=== PATIENT | male | born 1970 | race Caucasian/White ===

== ENCOUNTER 2016-05-08 20:03 | Emergency (ER) | payer MEDICAID ==
[~2016-05-08] VITALS: Ht 180.3 cm; Wt 99.8 kg
[2016-05-08 20:12] VITALS: BP 149/98
--- NOTE | 2016-05-09 00:01 | NUR ---
PT TAKEN TO BED 5
--- NOTE | 2016-05-09 00:03 | NUR ---
Filomena ma in [facility] - 05/09/16 at [address] Hunter evaluating patient at bedside.
--- NOTE | 2016-05-09 00:05 | NUR ---
46 Y/O M W/C/O ABD PAIN, N/V X TODAY. DENIES ANY FEVER. NO S/S OF DISTRESS NOTED AT THE MOMENT. ER AWARED.
--- NOTE | 2016-05-09 00:09 | NUR ---
Dr. Hunter evaluating patient at bedside.
[2016-05-09] MEDS ORDERED: NACL 0.9% 1,000 ML IV SCH (00:12)
[2016-05-09] MEDS ORDERED: ONDANSETRON 4 MG/2 ML VIAL IVP ONE (00:15)
[2016-05-09] MEDS ORDERED: FAMOTIDINE 20 MG/2 ML VIAL IVP ONE (00:15)
[2016-05-09 02:18] VITALS: BP 125/78
--- NOTE | 2016-05-09 02:18 | NUR ---
PT ELOPED WITHOUT BEING DISCHARGE BY DR. YEE. ER NOTIFIED. IV DISCONTINUED BEFORE PT LEFT.
== END 2016-05-09 02:18 | disposition home or self-care (01) ==
LOC: MED 20:03
DX: K29.00 Acute gastritis without bleeding (principal); I10 Essential (primary) hypertension
CPT/HCPCS: 36415; 80053; 81001; 82150; 83690; 85025; 96361; 96374; 96375; 99284; J2405; J3490; J7030